=== PATIENT | female | born 1970 | race American Indian/Alaskan Native ===

== ENCOUNTER 2018-10-20 23:34 | Emergency (ER) | payer OTHER ==
[~2018-10-20] VITALS: Ht 160 cm; Wt 88.5 kg
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
[2018-10-21] MEDS ORDERED: GENTAMICIN SULFA5 ML OU (03:56)
[2018-10-21] MEDS ORDERED: NORCO 5-325 TA1 EACH PO (03:56)
--- NOTE | 2018-10-21 10:49 | NUR ---
THIS MORNING PT WAS ABLE TO GIVE ME A CORRECT PHONE# FOR HER FRIEND MUMTAZ. I MADE CONTACT WITH HIM, AND HE WILL BE ON HIS WAY TO [facility] AND TAKE PT HOME. SHE WAS EATING AND GOING TO TAKE A SHOWER. HAD PRAYER AGAIN WITH PT-STILL KIND OF IN SHOCK. NOTIFIED [employer] BINDING FOLDER OF PT'S ARRANGEMENTS-SHE IS IN RM#118. WILL CONTINUE TO FOLLOW NEEDED
== END 2018-10-21 04:30 | disposition home or self-care (01) ==
LOC: ED 23:34
DX: S02.2XXA Fracture of nasal bones, initial encounter for closed fracture (principal); S01.111A Laceration without foreign body of right eyelid and periocular area, initial encounter; T15.12XA Foreign body in conjunctival sac, left eye, initial encounter; T15.11XA Foreign body in conjunctival sac, right eye, initial encounter
CPT/HCPCS: 12013; 70450; 70486; 71045; 72125; 80053; 82150; 82550; 83690; 85025; 86850; 86900; 86901; 99284-25; G0480; J1170

== ENCOUNTER 2021-07-13 14:52 | Emergency (ER) | payer MEDICAID ==
[~2021-07-13] VITALS: Ht 160 cm; Wt 88.5 kg
[~2021-07-13 14:52] MED LIST: GENTAMICIN SULFA5 ML OU; NORCO 5-325 TA1 EACH PO
--- OUTSIDE RECORDS SUMMARY | 2021-07-13 14:58 | XMS ---
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 Katerine has no Care Guidelines for this patient. Anjelica VISIT COUNT (12 MO.) [address] TOTAL 7 NOTE: Visits indicate total known visits. [place] (12 MO.) [facility] [place] [facility] COMPLAINT: - SOB 06/30/2021 21:37 [facility] TYPE: Emergency 03/01/2021 22:25 [facility] TYPE: Emergency COMPLAINT: - Shortness of breath - Abdominal distension (gaseous) - Vomiting, unspecified DIAGNOSES: 1. Heart failure, unspecified 2. Shortness of breath [facility] COMPLAINT: - SOB 01/25/2021 11:36 [facility] TYPE: Emergency DIAGNOSES: - Chest Pain - Heart failure, unspecified - Shortness of breath 01/06/2021 20:27 [facility] TYPE: Emergency COMPLAINT: - sob/abd pain/swelling 12/08/2020 20:14 [facility] TYPE: Emergency COMPLAINT: - SOB INPATIENT VISIT TRACKING (12 MO.) 04/03/2021 13:01 [facility] TYPE: Critical Care DIAGNOSES: - Chronic systolic (congestive) heart failure - Cerebral infarction due to unspecified occlusion or stenosis of right middle cerebral artery - Essential (primary) hypertension - Acute systolic (congestive) heart failure - Other stimulant abuse, in remission - Dilated cardiomyopathy - Cerebral infarction, unspecified - Cerebral infarction due to embolism of right middle cerebral artery [email or web address]
[2021-07-13] MEDS ORDERED: LASIX40 MG PO (15:15)
[2021-07-13] MEDS ORDERED: METOPROLOL SUCC25 MG PO (15:16)
[2021-07-13] MEDS ORDERED: SENNA LAXATIVE8.6 MG PO (15:17)
[2021-07-13] MEDS ORDERED: ZESTRIL2.5 MG NG (15:17)
[2021-07-13] MEDS ORDERED: XARELTO1 EACH PO (15:18)
--- NOTE | 2021-07-14 20:26 | EKG ---
[facility] [address] [place], [place] [address] Signed Sinus tachycardia Rightward axis Low voltage QRS Cannot rule out Anterior infarct , age undetermined Abnormal ECG No previous ECGs available Confirmed by DANE DENIS MD ([id number]) on 07/14/2021 8:26:38 PM Electronically Signed By: DANE DENIS MD 07/14/212025 PATIENT NAME: BAILEE CHAVARRIA Electrocardiogram DATE OF : 66 PHYSICIAN: DANE DENIS MD REPORT #: [id number] REPORT IS CONFIDENTIAL AND NOT TO BE RELEASED WITHOUT AUTHORIZATION
== END 2021-07-13 17:19 | disposition home or self-care (01) ==
LOC: ED 14:52
DX: I50.9 Heart failure, unspecified (principal); E11.9 Type 2 diabetes mellitus without complications; F17.200 Nicotine dependence, unspecified, uncomplicated; Z79.899 Other long term (current) drug therapy
CPT/HCPCS: 71045; 80053; 80500; 83735; 83880; 84484; 85025; 93005; 93010; 99285-25